=== PATIENT | female | born 1955 | race Caucasian/White ===

== ENCOUNTER 2018-05-15 11:36 | Day surgery (SDC) | payer OTHER ==
[~2018-05-15] VITALS: Ht 167.6 cm; Wt 91.1 kg
[2018-05-15 13:08] VITALS: BP 159/86; PULSE 78; RESP 15
[2018-05-15] MEDS ORDERED: LIPITOR (13:31)
[2018-05-15] MEDS ORDERED: BP MEDICATION (13:31)
[2018-05-15] MEDS ORDERED: MIDAZOLAM 1 MG/ML 2 ML INJ ONE ×2 (14:24)
[2018-05-15] MEDS ORDERED: FENTAnyl 50 MCG/ML VIAL ONE (14:24)
[2018-05-15 14:45] VITALS: BP 143/75; PULSE 94; RESP 15
== END 2018-05-15 15:26 | disposition home or self-care (01) ==
LOC: GIL 11:36
PROVIDERS: ATTEND Internal Medicine
DX: Z12.11 Encounter for screening for malignant neoplasm of colon (principal); K64.0 First degree hemorrhoids; K57.30 Diverticulosis of large intestine without perforation or abscess without bleeding; Z80.0 Family history of malignant neoplasm of digestive organs; I10 Essential (primary) hypertension; E78.00 Pure hypercholesterolemia, unspecified
CPT/HCPCS: 45378; J2250; J3010